=== PATIENT | female | born 1975 | race Caucasian/White ===

== ENCOUNTER → 2023-10-01 09:09 | Outpatient (REF) | payer OTHER, SELFPAY | LOC: RAD 09:09 | PROVIDERS: ATTENDING PHYSICIAN Emergency Medicine | DX: R74.8 Abnormal levels of other serum enzymes (principal) | CPT/HCPCS: 77080 ==

== ENCOUNTER → 2023-12-13 11:10 | Outpatient (REF) | payer OTHER, SELFPAY | LOC: RAD 11:10 | PROVIDERS: ATTENDING PHYSICIAN Internal Medicine Gastroenterology; FAMILY PHYSICIAN Emergency Medicine | DX: B19.10 Unspecified viral hepatitis B without hepatic coma (principal) | CPT/HCPCS: 76700 ==